=== PATIENT | female | born 1955 | race Caucasian/White ===

== ENCOUNTER → 2017-02-18 | Day surgery (SDC) | payer BC ==
[~2017-02-18] MED LIST: Lactated Ringers 1,000 ML IV SCH; Propofol 200 MG/20 ML SDV IV ONE
[2017-02-18 10:37] VITALS: BP 138/74
--- NOTE | 2017-02-18 10:47 | OR ---
DATE OF OPERATION: 02/18/2017 PREOPERATIVE DIAGNOSIS: ALTERED BOWEL HABITS. POSTOPERATIVE DIAGNOSIS: ALTERED BOWEL HABITS. SURGEON: Mj Paz MD PROCEDURE: FULL-LENGTH COLONOSCOPY WITH BIOPSIES X2. ANESTHESIA: INVENTORY CONTROL ANALYST. COMPLICATIONS: None. SPECIMEN: 1. Cecal biopsy x1. 2. Sigmoid biopsy x1. FINDINGS: 1. Full-length colonoscopy. 2. 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 3. Small AVM, distal sigmoid. RECOMMENDATIONS: Medical follow up with Bambi Stevenson. INDICATIONS: The patient has apparently had a 3- to 4-week history of diarrhea. Does have a history of polyps in her past. Bambi sent her for colonoscopy. DESCRIPTION OF PROCEDURE: The patient was prepped and draped, placed in a left lateral decubitus position. A lubricated Olympus colonoscope was inserted and easily advanced to the cecum. Direct visualization of the ileocecal valve was accomplished. We were able to easily get into the terminal ileum as well and no signs of any inflammatory bowel disease or infections were seen in the terminal ileum. In the cecal pouch, the patient had a little bit of colitis. It looked like she had melanosis changes. We did do a biopsy of that. The rest of the ascending, transverse and descending colons were completely benign. Throughout the sigmoid colon, I found no signs of any polyps, mass, ulceration or lesions. No obvious bleeding sites or signs of colitis. There was one small little AVM in appearance. We biopsied that in its entirety without any complication. Resolution of bleeding was spontaneous. The rest of the rectosigmoid junction and rectal vault appeared benign. Retroflexion of scope in the rectum showed no anal lesions. Air was then suctioned. Scope was removed without complication. JUANCARLOS/FELICIA /[id number]
== END ==
LOC: CC.SDS 08:46
PROVIDERS: ATTEND Family Medicine
DX: K52.832 Lymphocytic colitis (principal); Z79.899 Other long term (current) drug therapy
CPT/HCPCS: 45380; J2704; J7120

== ENCOUNTER 2022-03-22 18:26 | Emergency (ER) | payer MEDICARE, BC ==
[2022-03-22] MEDS: Aspirin 81 MG Tab.Chew PO ONE ×2 (18:48)
[2022-03-22 18:52] VITALS: BP 179/89; PULSE 70
== END 2022-03-22 23:26 | disposition home or self-care (01) ==
LOC: CC.ED 18:26
DX: R07.89 Other chest pain (principal); I10 Essential (primary) hypertension; Z79.899 Other long term (current) drug therapy
CPT/HCPCS: 36415; 71045; 80053; 83690; 83735; 84484; 85025; 93005; 93010; 99284; 99285; A9270-GY

== ENCOUNTER 2024-08-07 22:59 | Emergency (ER) | payer MEDICARE, BC ==
[2024-08-07] MEDS: Aspirin 81 MG Tab.Chew PO ONE (23:11)
[2024-08-07 23:14] LABS: BASOPHILS ABSOLUTE AUTO 0.05 10^3/uL (0.00-0.50); BASOPHILS PERCENT AUTO 0.6 % (0-1); EOSINOPHILS ABSOLUTE AUTO 0.25 10^3/uL (0.00-1.50); EOSINOPHILS PERCENT AUTO 2.8 % (0-6); HEMATOCRIT 39.9 % (37.0-47.0); HEMOGLOBIN 12.8 g/dL (12.0-16.0); IMMATURE GRAN ABSOLUTE AUTO 0.01 10^3/uL (0.00-0.49); IMMATURE GRAN PERCENT AUTO 0.1 % (0.0-4.9); LYMPHOCYTES ABSOLUTE AUTO 2.33 10^3/uL (0.60-5.00); MEAN CORPUSCULAR HEMOGLOBIN 29.7 pg (27.0-32.0); MEAN CORPUSCULAR HGB CONC 32.1 g/dL (32.0-36.0); MEAN CORPUSCULAR VOLUME 92.6 fL (83.0-97.0); MONOCYTES ABSOLUTE AUTO 0.54 10^3/uL (0.00-1.50); NEUTROPHILS ABSOLUTE AUTO 5.79 x10^3/uL (1.80-8.00); NEUTROPHILS PERCENT AUTO 64.5 % (41-71); PLATELET COUNT,PLT 258 10^3/uL (150-400); RED BLOOD CELL COUNT 4.31 x10^6/uL (4.00-5.50)
[2024-08-07 23:31] LABS: ALBUMIN 3.6 g/dL (3.4-5.0); BILIRUBIN TOTAL 0.6 mg/dL (0.0-1.0); CALCIUM 8.8 mg/dL (8.4-10.1); CREATININE 1.1 mg/dL (0.6-1.0); EST CRCL DRUG DOSING (CG) 37.64 mL/min; POTASSIUM,K 3.7 mEq/L (3.5-5.0); PROTEIN TOTAL,TP 6.4 g/dL (6.4-8.2)
[2024-08-08 00:01] VITALS: BP 159/65; PULSE 70
== END 2024-08-08 00:14 | disposition home or self-care (01) ==
LOC: CC.ED 22:59
DX: R07.2 Precordial pain (principal); I10 Essential (primary) hypertension; K21.9 Gastro-esophageal reflux disease without esophagitis; Z79.899 Other long term (current) drug therapy
CPT/HCPCS: 36415; 71046; 80053; 82550; 83690; 84484; 85025; 86140; 93005; 99285; A9270; 93010; 99284